=== PATIENT | male | born 1950 | race Caucasian/White ===

== ENCOUNTER 2023-01-25 08:28 | Inpatient (IN) | payer OTHER ==
[~2023-01-25] VITALS: Ht 175.3 cm; Wt 78.7 kg
[~2023-01-25 08:28] MED LIST: ASPIRIN ADULT L81 M1 PO; BACTRIM DS 8001 TA1 PO; CEFTIN250 MG PO; CLINDAMYCIN HC300 MG PO; EFFEXOR75 MG PO; KEFLEX500 MG PO; Lopressor25 MG PO; PLAVIX75 MG PO; PREVACID SOLUTA30 MG PO; SYMBICORT 10.10.2 M1 IH; SYMBICORT1 AE1 INH; VALIUM5 MG; VIBRAMYCIN100 MG PO; VICODIN 5/500 505 MG PO; VICODIN ES 7501 TAB PO; ZOFRAN4 MG PO
[2023-01-25 08:46] VITALS: BP 152/78
[2023-01-25 09:17] LABS: BASO # 0.1 10*3/uL (0.0-0.1); BASO % 0.5 % (0.0-1.0); EOS # 0.3 10*3/uL (0.0-0.4); HEMATOCRIT 37.4 % (42.0-52.0); LYMPH % 13.5 % (27.0-41.0); MEAN CELL VOLUME 88.2 fl (80.0-94.0); MEAN CORPUSCULAR HGB 26.9 pg (27.0-31.0); MEAN CORPUSCULAR HGB CONC 30.5 g/dl (33.0-37.0); MEAN PLATELET VOLUME 10.4 fl (9.6-12.3); MONO # 0.9 10*3/uL (0.1-1.0); MONO % 6.1 % (3.0-9.0); NEUT # 11.5 10*3/uL (2.3-7.9); NEUT % 76.9 % (47.0-73.0); PLATELET COUNT AUTOMATED 366 10*3/uL (130-400); RED BLOOD COUNT 4.24 10*6/uL (4.50-5.90); RED CELL DISTRI WIDTH 15.3 % (0-14.5)
[2023-01-25 09:28] LABS: ACT PARTIAL THROMBO TIME 27.4 SECONDS (20.0-32.1)
[2023-01-25] MEDS ORDERED: PROVENTIL HFA6.7 GM INH (10:03)
[2023-01-25] MEDS ORDERED: INCRUSE ELLI62.5 MCG INH (10:03)
[2023-01-25] MEDS ORDERED: ASPIRIN81 M1 PO (10:04)
[2023-01-25] MEDS ORDERED: FLUTICASONE-SA1 EAC4 INH (10:04)
[2023-01-25] MEDS ORDERED: CLOPIDOGREL75 MG PO (10:04)
[2023-01-25] MEDS ORDERED: LOPRESSOR25 MG PO (10:05)
[2023-01-25] MEDS ORDERED: SIMVASTATIN80 MG PO (10:05)
[2023-01-25] MEDS ORDERED: MONTELUKAST SOD10 MG PO (10:05)
[2023-01-25 10:07] LABS: ALKALINE PHOSPHATASE 75 U/L (46-116); BUN 10 mg/dl (9-23); CHLORIDE 107 mmol/L (98-107); LIPASE 32 U/L (12-53); POTASSIUM 4.1 mmol/L (3.4-5.1); SGPT/ALT 13 U/L (10-49); TOTAL PROTEIN 7.7 gm/dL (6.0-8.0)
[2023-01-25 10:50] VITALS: BP 146/80
[2023-01-25 12:00] VITALS: BP 133/66
[2023-01-25 13:40] LABS: ARTERIAL BLOOD GAS PH 7.461 (7.35-7.45); ARTERIAL BLOOD GAS PO2 72.7 (80-90)
[2023-01-25 16:00] VITALS: BP 129/79
[2023-01-25 20:00] VITALS: BP 140/52
[2023-01-26] VITALS: BP 118/80
[2023-01-26 06:29] LABS: MEAN CELL VOLUME 88.1 fl (80.0-94.0); MEAN CORPUSCULAR HGB 26.7 pg (27.0-31.0); MEAN CORPUSCULAR HGB CONC 30.3 g/dl (33.0-37.0); MEAN PLATELET VOLUME 10.3 fl (9.6-12.3); PLATELET COUNT AUTOMATED 405 10*3/uL (130-400); RED BLOOD COUNT 3.86 10*6/uL (4.50-5.90); RED CELL DISTRI WIDTH 15.6 % (0-14.5); WHITE BLOOD COUNT 26.8 10*3/uL (4.8-10.8)
[2023-01-26 06:31] LABS: MANUAL DIFF REFLEX YES
[2023-01-26 06:51] LABS: BUN 17 mg/dl (9-23); CHLORIDE 104 mmol/L (98-107); CHOLESTEROL 116 mg/dL (<200); FREE T4 1.09 ng/dl (0.89-1.76); LDL CHOLESTEROL 54 mg/dL (9-159); POTASSIUM 4.3 mmol/L (3.4-5.1); THYROID STIM HORMONE (HS) 2.205 uIU/ml (0.550-4.780); TRIGLYCERIDES 61 mg/dl (<150)
[2023-01-26 07:11] LABS: OVALOCYTES FEW; PLATELET SUFFICIENCY HIGH (NORMAL); POLYCHROMASIA SLIGHT; TOTAL CELLS COUNTED 100 #CELLS; TOXIC GRANULATION SLIGHT
[2023-01-26 07:39] LABS: VITAMIN D, 25-HYDROXY 76.2 ng/mL (30-100)
[2023-01-26 08:00] VITALS: BP 121/58
[2023-01-26 12:00] VITALS: BP 124/60
[2023-01-26 16:00] VITALS: BP 116/51
[2023-01-26 20:00] VITALS: BP 118/60
[2023-01-27] VITALS: BP 120/59
[2023-01-27 07:42] LABS: HEMATOCRIT 33.2 % (42.0-52.0); MEAN CELL VOLUME 89.5 fl (80.0-94.0); MEAN CORPUSCULAR HGB 27.5 pg (27.0-31.0); MEAN CORPUSCULAR HGB CONC 30.7 g/dl (33.0-37.0); MEAN PLATELET VOLUME 9.8 fl (9.6-12.3); PLATELET COUNT AUTOMATED 334 10*3/uL (130-400); RED BLOOD COUNT 3.71 10*6/uL (4.50-5.90); RED CELL DISTRI WIDTH 15.8 % (0-14.5); WHITE BLOOD COUNT 26.3 10*3/uL (4.8-10.8)
[2023-01-27 07:44] LABS: MANUAL DIFF REFLEX YES
[2023-01-27 08:00] VITALS: BP 131/54
[2023-01-27 08:05] LABS: BUN 20 mg/dl (9-23); CHLORIDE 105 mmol/L (98-107); POTASSIUM 4.7 mmol/L (3.4-5.1)
[2023-01-27 08:09] LABS: ATYPICAL LYMPHS 1 % (0-0); BURR CELLS FEW; OVALOCYTES FEW; PLATELET SUFFICIENCY NORMAL (NORMAL); POLYCHROMASIA SLIGHT; TOTAL CELLS COUNTED 100 #CELLS; TOXIC GRANULATION SLIGHT
[2023-01-27 12:00] VITALS: BP 131/57
[2023-01-27 16:00] VITALS: BP 105/50
[2023-01-27 20:00] VITALS: BP 129/56
[2023-01-28] VITALS: BP 117/59
[2023-01-28 06:58] LABS: HEMATOCRIT 33.2 % (42.0-52.0); MEAN CORPUSCULAR HGB 27.1 pg (27.0-31.0); MEAN CORPUSCULAR HGB CONC 30.4 g/dl (33.0-37.0); MEAN PLATELET VOLUME 10.3 fl (9.6-12.3); PLATELET COUNT AUTOMATED 328 10*3/uL (130-400); RED BLOOD COUNT 3.73 10*6/uL (4.50-5.90); RED CELL DISTRI WIDTH 15.7 % (0-14.5); WHITE BLOOD COUNT 25.4 10*3/uL (4.8-10.8)
[2023-01-28 07:02] LABS: MANUAL DIFF REFLEX YES
[2023-01-28 07:24] LABS: TOTAL CELLS COUNTED 100 #CELLS
[2023-01-28 07:25] LABS: PLATELET SUFFICIENCY NORMAL (NORMAL); POLYCHROMASIA SLIGHT; TOXIC GRANULATION SLIGHT
[2023-01-28 07:26] LABS: BURR CELLS FEW; OVALOCYTES FEW; ROULEAUX SLIGHT
[2023-01-28 07:29] LABS: BUN 18 mg/dl (9-23); CHLORIDE 104 mmol/L (98-107); POTASSIUM 4.3 mmol/L (3.4-5.1)
[2023-01-28 08:00] VITALS: BP 117/52
[2023-01-28 12:00] VITALS: BP 143/60
[2023-01-28 16:00] VITALS: BP 116/54
[2023-01-28 20:00] VITALS: BP 112/57
[2023-01-29] VITALS: BP 101/48
[2023-01-29 05:37] LABS: BUN 17 mg/dl (9-23); CHLORIDE 106 mmol/L (98-107); POTASSIUM 3.7 mmol/L (3.4-5.1)
[2023-01-29 06:06] LABS: BASO % 0.2 % (0.0-1.0); EOS % 0.2 % (1.0-4.0); HEMATOCRIT 31.2 % (42.0-52.0); LYMPH # 3.2 10*3/uL (1.3-4.4); LYMPH % 18.9 % (27.0-41.0); MEAN CELL VOLUME 88.9 fl (80.0-94.0); MEAN CORPUSCULAR HGB 27.1 pg (27.0-31.0); MEAN CORPUSCULAR HGB CONC 30.4 g/dl (33.0-37.0); MEAN PLATELET VOLUME 10.8 fl (9.6-12.3); MONO # 1.4 10*3/uL (0.1-1.0); MONO % 8.1 % (3.0-9.0); NEUT # 11.8 10*3/uL (2.3-7.9); NEUT % 71.1 % (47.0-73.0); PLATELET COUNT AUTOMATED 319 10*3/uL (130-400); RED BLOOD COUNT 3.51 10*6/uL (4.50-5.90); RED CELL DISTRI WIDTH 15.5 % (0-14.5); WHITE BLOOD COUNT 16.7 10*3/uL (4.8-10.8)
[2023-01-29 08:00] VITALS: BP 124/50
[2023-01-29] MEDS ORDERED: DOXYCYCLINE HY100 M3 PO (10:33)
[2023-01-29] MEDS ORDERED: PREDNISONE10 MG PO (10:33)
[2023-01-29] MEDS ORDERED: VISTARIL25 MG PO (10:33)
[2023-01-29] MEDS ORDERED: Ventolin 02.5 MG/3 M INH (10:33)
[2023-01-29] MEDS ORDERED: PROTONIX40 MG PO (11:08)
[2023-01-29 12:00] VITALS: BP 127/63
== END 2023-01-29 12:46 | disposition home health service (06) | DRG 189 ==
LOC: ED 08:28 → EDHOLD 10:47 → 4E 10:47
PROVIDERS: Emergency Medicine; Internal Medicine Critical Care Medicine; Registered Nurse; Student in an Organized Health Care Education/Training Program; ADMIT Student in an Organized Health Care Education/Training Program; ATTEND Student in an Organized Health Care Education/Training Program
DX: J96.21 Acute and chronic respiratory failure with hypoxia (principal); J44.1 Chronic obstructive pulmonary disease with (acute) exacerbation; I25.10 Atherosclerotic heart disease of native coronary artery without angina pectoris; I10 Essential (primary) hypertension; E78.5 Hyperlipidemia, unspecified; K21.9 Gastro-esophageal reflux disease without esophagitis; R53.81 Other malaise; Z88.1 Allergy status to other antibiotic agents; Z88.8 Allergy status to other drugs, medicaments and biological substances; Z90.49 Acquired absence of other specified parts of digestive tract; Z95.5 Presence of coronary angioplasty implant and graft; I25.2 Old myocardial infarction; Z99.81 Dependence on supplemental oxygen; Z86.19 Personal history of other infectious and parasitic diseases; Z98.42 Cataract extraction status, left eye; Z98.41 Cataract extraction status, right eye